=== PATIENT | female | born 1950 | race Caucasian/White ===

== ENCOUNTER 2023-04-27 19:49 | Emergency (ER) | payer MEDICARE, SELFPAY ==
[2023-04-27 19:51] VITALS: BP 110/64
--- NOTE | 2023-04-27 20:47 | ED.GENMED ---
History of Present Illness
<Casandra Rioz PA-C - Last Filed: 04/28/23 17:27>
General
Chief Complaint: Extremity Pain (non-traumatic)
Source: patient
Exam Limitations: none
Time Seen by Provider: 04/27/23 19:58
Nursing documentation reviewed up to this point in time: agreed with
Travel History
Have you had any contact with someone who has COVID-19?: No
Do you have any symptoms of coronavirus? Fever > 100 degrees, chills, cough, shortness of breath, sore throat, loss of taste or smell, muscle aches, or headache?: No
History of Present Illness
History of Present Illness:
Patient is a chronically ill 73-year-old female with history of dementia presenting for evaluation of right shoulder/upper back pain. The majority of the history is obtained by patient's son due to patient's dementia.
Earlier this evening�patient was apparently crying in tears due to pain in right shoulder. Patient's son does not know of any recent trauma or injury to the area. He brought her to the emergency department due to intractable pain.
Patient's son who is her caregiver states that she has suffered from right shoulder and upper back pain for the past year. They have seen multiple specialist and had imaging done that showed a torn rotator cuff and arthritis of right shoulder.
Based on patient's age and clinical condition�there is no plan to intervene at this time. Patients son states that pain is present every day and typically worse at the end of the day. They have tried Tylenol, NSAIDs, cortisone injections with no
improvement.
Patient does have a PEG tube and receives medications through PEG tube.
Past History
<Casandra Rizo PA-C - Last Filed: 04/28/23 17:27>
Past History
ED Past Medical History: Cancer and Hypothyroidism
ED Past Surgical History: Appendectomy and Other (peg, esophageal)
Social History
Tobacco: Former smoker
Alcohol: None
Drug: None
Personal: Single
Living: with family
Phy Exam
<Casandra Rizo PA-C - Last Filed: 04/28/23 17:27>
Physical Exam
Physical Exam:
General: Chronically ill, very frail appearing
Vitals: Vital signs stable, afebrile
HEENT: Atraumatic, normocephalic; protecting airway
Neck: appears supple
CV: No evidence of cyanosis
Resp: No evidence of respiratory distress
Abd: Non-distended
Extremities: No pain to palpation of right shoulder, no significant redness, warmth, swelling of right shoulder, tenderness to palpation over the right scapula, significant pain with shoulder abduction; no obvious deformity or bony tenderness
overlying right humerus or right shoulder, right upper extremity neurovascularly intact
Neuro: alert
Psych: Normal affect
Skin: Intact, no rashes
Course
<Casandra Rizo PA-C - Last Filed: 04/28/23 17:27>
Orders/Labs/Results
Orders:
Orders
04/27/23 20:46
Shoulder, Right 2 Views [CR Shoulder - Right Min 2 View] Urgent
Comment:
Reason For Exam: pain
04/27/23 21:03
Oxycodone [Roxicodone Oral Solution] 5 mg PO NOW STA
04/27/23 22:53
Sling Right-Treatment ONCE
Vital Signs
Initial and Last Documented VS:
Initial Vital Signs
Temp Pulse Resp BP Pulse Ox
97.5 F 72 18 110/64 98
04/27/23 19:51 04/27/23 19:51 04/27/23 19:51 04/27/23 19:51 04/27/23 19:51
Last Documented Vital Signs
Temp Pulse Resp BP Pulse Ox
97.5 F 72 18 110/64 98
04/27/23 19:51 04/27/23 19:51 04/27/23 19:51 04/27/23 19:51 04/27/23 19:51
<Fredy Borden DO - Last Filed: 04/27/23 20:52>
Orders/Labs/Results
Orders:
Orders
04/27/23 20:46
Shoulder, Right 2 Views [CR Shoulder - Right Min 2 View] Urgent
Comment:
Reason For Exam: pain
04/27/23 21:03
Oxycodone [Roxicodone Oral Solution] 5 mg PO NOW STA
04/27/23 22:53
Sling Right-Treatment ONCE
Vital Signs
Initial and Last Documented VS:
Initial Vital Signs
Temp Pulse Resp BP Pulse Ox
97.5 F 72 18 110/64 98
04/27/23 19:51 04/27/23 19:51 04/27/23 19:51 04/27/23 19:51 04/27/23 19:51
Last Documented Vital Signs
Temp Pulse Resp BP Pulse Ox
97.5 F 72 18 110/64 98
04/27/23 19:51 04/27/23 19:51 04/27/23 19:51 04/27/23 19:51 04/27/23 19:51
<Casandra Rizo PA-C - Last Filed: 04/28/23 17:27>
MDM/Problems Addressed
Differential Diagnosis Includes:
Rotator cuff injury, tendinitis, arthritis, fracture, sprain, contusion
MDM/Problems Addressed:
Patient is a 73 year old female with dementia presenting with son for evaluation of intractable pain of right shoulder in setting of known rotator cuff tear and osteoarthritis. No known trauma. No plan for surgical intervention due to patients
current health condition. Patient is very frail, chronically ill. She does have feeding tube. She has some tenderness to right scapula but no obvious deformity or swelling. Given dementia history and degree of pain - will check xray. Will try to get
patient more comfortable.
Xray shows osteoarthritis of glenohumeral joint without evidence of acute fracture of dislocation. Patient appears more comfortable with morphine. She has otherwise remained stable. Patients son feels comfortable with discharge. Will place patient
in shoulder sling and provide a prescription for a few doses of liquid morphine for intractable pain. Will discharge with return precaution, pain management follow-up.
Chronic conditions affecting care:
Dementia, arthritis
Acute Exacerbation and/or Progression of Chronic Illness:
Right shoulder pain
<Casandra Rizo PA-C - Last Filed: 04/28/23 17:27>
*Radiology
Radiology exam reviewed: preliminary read by ED provider and radiology read reviewed
*Pulse Oximetry
Patient hypoxic: no
*EKG
Interpreted by ED Provider?: NA
*Library Science Professor Interpretation
Rate: Library Science Professor- N/A
*Critical Care Note
Total Time (30-74mins, 75-104mins- exclusive of procedures): Not Applicable
ED Attending Note
<Casandra Rizo PA-C - Last Filed: 04/28/23 17:27>
-
Portions of this chart may have been created with voice recognition software.� Occasional wrong word or��sound alike� substitutions may have occurred due to the inherent limitations of voice recognition software.
<Fredy Borden DO - Last Filed: 04/27/23 20:52>
ED Attending Note
Patient seen and examined by attending physician: Yes
I performed the substantive portion of visit, reviewed & personally made and approve the management plan that is documented in note by myself or MITCH.: Yes
ED Attending Note:
Seen with ANA LILIA examined independently 73-year-old female dementia protein calorie malnutrition recurrent right shoulder pain is seen Dr. Meza had a steroid injection without much relief culture rotator cuff injury tear not a candidate for surgery
Here she is chronically ill-appearing but nontoxic mild pain with range of motion, skin is not particularly warm around her shoulder will check screening x-ray rule out any occult trauma try to get her comfortable reviewed with son
Discharge Plan
Departure
Patient Disposition: Home (Routine Discharge)
Date of Disposition: 04/27/23
Time of Disposition: 22:53
Patient with high blood pressure during this ER visit?: No
Condition: Good
Covid-19: Not Applicable
Discharge Problem:
Pain in right shoulder, Osteoarthritis of right shoulder
Instructions: Osteoarthritis (DC), Shoulder Pain (DC)
Prescriptions:
New
oxycodone 5 mg/5 mL solution
5 mg feeding tube Q6H PRN (Reason: Pain) Qty: 30 0RF
Referrals:
Ramez Garber MD [Non-Admitting Privileges] -
Joe Garber MD [Active] -
UNKNOWN - PT DOES,NOT KNOW [Family Provider] -
Activity Restrictions/Additional Instructions:
- Return to the emergency department with any intractable pain, numbness/ tingling in extremities, severe back pain, chest pain, shortness of breath, worsening in current symptoms, or any other concerns
-You can keep arm in a sling as needed for comfort.
-For pain control�I would recommend Tylenol as needed for mild pain. I have sent a prescription for oxycodone solution to use as needed for severe pain. You can place 5 mL through the feeding tube every 6 hours as needed. You should use this
medication cautiously as it will cause drowsiness and increase her risk of falls. Do not let her use this medication and leave her unattended.
-You should follow-up with primary care for further evaluation/management.
-For chronic pain control�you should follow-up with pain management as listed above.
Interventions
Interventions:
*Risk Screen - Suicide Last Done: 04/27/23 19:51
*General Assessment Last Done: 04/27/23 19:51
*Neglect/Abuse Screening Last Done: 04/27/23 20:16
*ED COVID-19 Vaccine History Last Done: 04/27/23 19:51
*Nursing Disposition Last Done: 04/27/23 23:18
ED-Skin Assessment Last Done: 04/27/23 20:18
ED-Peripheral Vascular Assessment Last Done: 04/27/23 20:18
ED-Musculoskeletal Assessment Last Done: 04/27/23 20:18
Discharge Date and Time
Discharge Date/Time: 04/27/23 23:18
[2023-04-27] MEDS: ROXICODONE ORAL SOLUTION 5 MG PO (21:17)
== END 2023-04-27 23:18 | disposition home or self-care (01) ==
LOC: EMR 19:49
PROVIDERS: EMERGENCY PHYSICIAN Emergency Medicine
DX: M25.511 Pain in right shoulder (principal); M19.011 Primary osteoarthritis, right shoulder; F03.90 Unspecified dementia, unspecified severity, without behavioral disturbance, psychotic disturbance, mood disturbance, and anxiety; E03.9 Hypothyroidism, unspecified; Z87.891 Personal history of nicotine dependence
CPT/HCPCS: 99283; 73030

== ENCOUNTER 2023-05-28 17:14 | Emergency (ER) | payer MEDICARE, SELFPAY ==
[2023-05-28 17:17] VITALS: BP 119/82
[2023-05-28 17:19] VITALS: BMI 17.8
--- NOTE | 2023-05-28 19:38 | ED.GENMED ---
History of Present Illness
General
Chief Complaint: Catheter/Tube Problem
Source: family (Son)
Exam Limitations: none
Time Seen by Provider: 05/28/23 18:58
Travel History
Have you had any contact with someone who has COVID-19?: No
Do you have any symptoms of coronavirus? Fever > 100 degrees, chills, cough, shortness of breath, sore throat, loss of taste or smell, muscle aches, or headache?: No
History of Present Illness
History of Present Illness:
This is a 73 year old female that is brought in by son with c/o leaking G-tube. Son states that he noticed yesterday that there was a small leak in the tube. States that this has continued to get worse and is not leaking. Denies any fever, chills,
chest pain, SOB, abd pain, nausea, vomiting, diarrhea,, headache, dizziness.
Past History
Past History
ED Past Medical History: Cancer (Throat and esophagus), Hypothyroidism and Other ([place])
ED Past Surgical History: Appendectomy and Other (peg, esophageal. back surgery)
Social History
Tobacco: Former smoker
Alcohol: None
Drug: None
Personal:
Living: with family
Review of Systems
Review of Systems
All Other Systems: ROS reviewed and negative except as documented in HPI and ROS
Constitutional: Reports no symptoms; Denies fever or chills
EENT: Reports no symptoms
Respiratory: Reports no symptoms
Cardiac: Reports no symptoms
ABD/GI: Reports abdominal pain and other (G-tube leaking); Denies nausea, vomiting or diarrhea
: Reports no symptoms
Musculoskeletal: Reports no symptoms
Skin: Reports no symptoms
Neurological: Reports no symptoms; Denies dizzy or headache
Psychiatric: Reports no symptoms
Phy Exam
General Physical Exam
General Presentation: no apparent distress
General age: appears stated age
General Skin: warm and dry
General Habitus: elderly
General Mental: alert
General Hydration: appears well hydrated
ENT Exam
ENT Exam: TM's normal, neck supple and other (Esophageal and Pharynx surgery, Uvula abscent)
Eye Exam
Eye Exam: EOMI
Cardiovascular Exam
Cardiovascular Exam: regular rate/rhythm and normal peripheral pulses
Pulmonary Exam
Pulmonary Exam: lungs clear, no respiratory distress, no rales, chest non tender, no crackles, no rhonchi, no wheezing and no cough
Gastrointestinal Exam
Gastrointestinal Exam: normal bowel sounds, non tender, soft, no organomegaly, no pulsatile mass and non distended
External Findings: gastrostomy tube (Removed and changed with same Size 16 G-tube without difficult)
Musculoskeletal Exam
Musculoskeletal Exam: full ROM and no edema
Skin Exam
Skin Exam: normal color, warm/dry, no rash and no petechia
Psychiatric Exam
Psychiatric Exam: normal mood/affect
Course
Orders/Labs/Results
Orders:
Orders
05/28/23 19:27
Lidocaine 2% [Lidocaine Uro-Jet 2%] 1 syringe .ROUTE .[facility]
05/28/23 19:37
Tube Check [CR Cont Inj Eval Tube(by Rad)] Urgent
Comment:
Reason For Exam: G-tube changed,
Vital Signs
Initial and Last Documented VS:
Initial Vital Signs
Temp Pulse Resp BP Pulse Ox
98.4 F 61 20 119/82 98
05/28/23 17:17 05/28/23 17:17 05/28/23 17:17 05/28/23 17:17 05/28/23 17:17
Last Documented Vital Signs
Temp Pulse Resp BP Pulse Ox
98.4 F 61 20 119/82 98
05/28/23 17:17 05/28/23 17:17 05/28/23 17:17 05/28/23 17:17 05/28/23 17:17
MDM/Problems Addressed
Differential Diagnosis Includes:
G-tube placement,
MDM/Problems Addressed:
This is a 73 year old female that is brought in by son with G-tube leaking.
G-tube changed without Difficulty. Will check placement with x-ray. If proper placement will discharge home.
Chronic conditions affecting care:
NA
Acute Exacerbation and/or Progression of Chronic Illness:
NA
*Radiology
Radiology exam reviewed: radiology read reviewed (Tube placement-The tip of the feeding tube is in the gastric antrum with no evidence of leak or gastric outlet obstruction. )
*Pulse Oximetry
Patient hypoxic: no
*EKG
Interpreted by ED Provider?: NA
Rate: EKG- N/A
*Combo Welder Interpretation
Rate: Combo Welder- N/A
*Critical Care Note
Total Time (30-74mins, 75-104mins- exclusive of procedures): Not Applicable
ED Attending Note
-
Portions of this chart may have been created with voice recognition software.� Occasional wrong word or��sound alike� substitutions may have occurred due to the inherent limitations of voice recognition software.
Discharge Plan
Departure
Patient Disposition: Home (Routine Discharge)
Date of Disposition: 05/28/23
Time of Disposition: 20:44
Patient with high blood pressure during this ER visit?: No
Condition: Good
Covid-19: Not Applicable
Discharge Problem:
G-tube replacement
Instructions: How to Care for Your Gastrostomy Tube
Prescriptions:
No Action
oxycodone 5 mg/5 mL solution
5 mg feeding tube Q6H PRN (Reason: Pain) Qty: 30 0RF
Referrals:
Kit Garcia PA-C [Family Provider] - Call in 1-3 days for appt
Activity Restrictions/Additional Instructions:
As discussed, you G-tube has been replaced and is properly positioned in the stomach. Please follow up with the GI specialist as needed. IF YOU HAVE ANY OTHER CONCERNS PLEASE RETURN TO THE EMERGENCY ROOM.
Interventions
Interventions:
*Risk Screen - Suicide Last Done: 05/28/23 17:19
*General Assessment Last Done: 05/28/23 17:19
ED- Fall Risk Assessment Last Done: 05/28/23 17:19
*ED COVID-19 Vaccine History Last Done: 05/28/23 17:19
Discharge Date and Time
Print Language: CROATIAN
== END 2023-05-28 20:56 | disposition home or self-care (01) ==
LOC: EMR 17:14
PROVIDERS: EMERGENCY PHYSICIAN Student in an Organized Health Care Education/Training Program; FAMILY PHYSICIAN Physician Assistant
DX: Z43.1 Encounter for attention to gastrostomy (principal); E03.9 Hypothyroidism, unspecified; F03.90 Unspecified dementia, unspecified severity, without behavioral disturbance, psychotic disturbance, mood disturbance, and anxiety; Z87.891 Personal history of nicotine dependence
CPT/HCPCS: 99283; 43762; 49465

== ENCOUNTER 2023-06-05 18:34 | Emergency (ER) | payer MEDICARE, SELFPAY ==
[2023-06-05 18:45] VITALS: BP 103/62
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
--- NOTE | 2023-06-06 10:59 | CM ---
Addendum entered by Alysa Gruber RN 06/06/23 12:25:
CM spoke with patient's son. He declined home care at this time. CM provided patient's son with contacts for admissions to [facility] and [facility]. CM will refer patient to [facility] for evaluation if needed.
Original Note:
CM reviewed medical records. CM spoke with patient's son who stated that patient's dementia symptoms are becoming more difficult to manage including aggressive behavior and wandering. CM was agreeable to [facility] care through [facility] and referral to [facility]
for evaluation and referral to services.
CM updated [facility] documentation liaison with new referral. CM will send referral to [facility].
== END 2023-06-05 20:36 | disposition home or self-care (01) ==
LOC: EMR 18:34
PROVIDERS: EMERGENCY PHYSICIAN Emergency Medicine; FAMILY PHYSICIAN Physician Assistant
DX: M19.011 Primary osteoarthritis, right shoulder (principal); W19.XXXA Unspecified fall, initial encounter; Z87.891 Personal history of nicotine dependence; F03.90 Unspecified dementia, unspecified severity, without behavioral disturbance, psychotic disturbance, mood disturbance, and anxiety; Z93.1 Gastrostomy status
CPT/HCPCS: 99283; 73030

== ENCOUNTER 2023-09-04 17:47 | Emergency (ER) | payer MEDICARE, SELFPAY ==
[2023-09-04 17:55] VITALS: BP 111/66; BMI 15.5
--- NOTE | 2023-09-04 20:12 | ED.GENMED ---
History of Present Illness
General
Chief Complaint: Catheter/Tube Problem
Source: patient and family
Exam Limitations: none
Time Seen by Provider: 09/04/23 18:35
Nursing documentation reviewed up to this point in time: agreed with
History of Present Illness
History of Present Illness:
Patient to ED for G tube replacement. Her tube dislodged at home today. Brought to ED by son for eval. No other complaints
Past History
Past History
ED Past Medical History: Cancer (Throat and esophagus), Hypothyroidism and Other ([place])
ED Past Surgical History: Appendectomy and Other (peg, esophageal. back surgery)
Social History
Tobacco: Former smoker
Alcohol: None
Drug: None
Personal:
Living: with family
Review of Systems
Review of Systems
Allergies reviewed?: Yes
All Other Systems: ROS reviewed and negative except as documented in HPI and ROS
Constitutional: Reports no symptoms
EENT: Reports no symptoms
Respiratory: Reports no symptoms
Cardiac: Reports no symptoms
ABD/GI: Reports other (gtube dislodged)
: Reports no symptoms
Skin: Reports no symptoms
Neurological: Reports no symptoms
Psychiatric: Reports no symptoms
Phy Exam
General Physical Exam
General Presentation: well appearing and no apparent distress
General age: appears stated age
General Skin: warm and dry
General Habitus: normal
General Mental: alert
Pulmonary Exam
Pulmonary Exam: no respiratory distress
Gastrointestinal Exam
Gastrointestinal Exam: normal bowel sounds, non tender, soft, no organomegaly and non distended
Musculoskeletal Exam
Musculoskeletal Exam: full ROM and neuro vasc intact
Skin Exam
Skin Exam: normal color, warm/dry and no rash
Psychiatric Exam
Psychiatric Exam: normal mood/affect
Course
Orders/Labs/Results
Orders:
Orders
09/04/23 18:44
Tube Check [CR Cont Inj Eval Tube(by Rad)] Urgent
Comment:
Reason For Exam: g tube replacement
Vital Signs
Initial and Last Documented VS:
Initial Vital Signs
Temp Pulse Resp BP Pulse Ox
97.4 F 70 16 111/66 99
09/04/23 17:55 09/04/23 17:55 09/04/23 17:55 09/04/23 17:55 09/04/23 17:55
Last Documented Vital Signs
Temp Pulse Resp BP Pulse Ox
97.4 F 70 16 111/66 99
09/04/23 17:55 09/04/23 17:55 09/04/23 17:55 09/04/23 17:55 09/04/23 17:55
*Critical Care Note
Total Time (30-74mins, 75-104mins- exclusive of procedures): Not Applicable
Update Note
Update Note:
16F gtube with 15cc balloon placed without difficulty. Confirmed by xray. She is discharged home and will follow up with her PCP as needed.
ED Attending Note
-
Portions of this chart may have been created with voice recognition software.� Occasional wrong word or��sound alike� substitutions may have occurred due to the inherent limitations of voice recognition software.
Discharge Plan
Departure
Patient Disposition: Home (Routine Discharge)
Date of Disposition: 09/04/23
Time of Disposition: 20:00
Patient with high blood pressure during this ER visit?: No
Condition: Good
Covid-19: Not Applicable
Discharge Problem:
Encounter for gastrojejunal (GJ) tube placement
Instructions: How to Care for Your Gastrostomy Tube
Prescriptions:
No Action
oxycodone 5 mg/5 mL solution
5 mg feeding tube Q6H PRN (Reason: Pain) Qty: 30 0RF
Referrals:
Kit Garcia PA-C [Family Provider] - Tomorrow
Interventions
Interventions:
*Risk Screen - Suicide Last Done: 09/04/23 17:55
*Neglect/Abuse Screening Last Done: 09/04/23 17:55
ED- Fall Risk Assessment Last Done: 09/04/23 17:55
*Nursing Disposition Last Done: 09/04/23 20:09
TA-Janjez-Kzapatgojh Assessment Last Done: 09/04/23 19:29
ED-Female Genitourinary Assessment Last Done: 09/04/23 19:29
Discharge Date and Time
Print Language: MOROCCAN
== END 2023-09-04 20:12 | disposition home or self-care (01) ==
LOC: EMR 17:47
PROVIDERS: EMERGENCY PHYSICIAN Emergency Medicine; FAMILY PHYSICIAN Physician Assistant
DX: Z43.1 Encounter for attention to gastrostomy (principal); E03.9 Hypothyroidism, unspecified; Z87.891 Personal history of nicotine dependence; Z90.49 Acquired absence of other specified parts of digestive tract
CPT/HCPCS: 99283; 43762; 49465

== ENCOUNTER 2023-10-27 19:31 | Emergency (ER) | payer MEDICARE, SELFPAY ==
[2023-10-27 19:32] VITALS: BMI 16.7
[2023-10-27 19:40] VITALS: BP 121/76
[2023-10-27 20:41] VITALS: BP 118/97
--- NOTE | 2023-10-27 21:15 | ED.GENMED ---
History of Present Illness
General
Chief Complaint: Catheter/Tube Problem
Source: patient and family (son)
Exam Limitations: dementia (Slight)
Time Seen by Provider: 10/27/23 20:13
History of Present Illness
History of Present Illness:
This is a 73 year old female that is brought in by her son with c/o feeding tube falling out. Son states that the tube has been in for about 2 months. States that she has had a feeding tube for years. Denies any fever, chills, chest pain, SOB, abd
pain, nausea, vomiting, diarrhea, headache, dizziness.
Past History
Past History
ED Past Medical History: Cancer (Throat and esophagus), Hypothyroidism and Other (Dementia slight)
ED Past Surgical History: Appendectomy and Other (peg, esophageal. back surgery)
Social History
Tobacco: Former smoker
Alcohol: None
Drug: None
Personal:
Living: with family
Review of Systems
Review of Systems
Other source history: family
All Other Systems: ROS reviewed and negative except as documented in HPI and ROS
Constitutional: Reports no symptoms; Denies fever or chills
EENT: Reports no symptoms
Respiratory: Reports no symptoms; Denies cough or trouble breathing
Cardiac: Reports no symptoms; Denies chest pain
ABD/GI: Denies abdominal pain, vomiting or diarrhea
: Reports no symptoms
Musculoskeletal: Reports no symptoms
Skin: Reports no symptoms
Neurological: Reports no symptoms; Denies dizzy or headache
Psychiatric: Reports no symptoms
Phy Exam
General Physical Exam
General Presentation: no apparent distress
General age: appears stated age
General Skin: warm and dry
General Habitus: elderly
General Mental: usual mental status
General Hydration: appears well hydrated
ENT Exam
ENT Exam: TM's normal, neck supple and other (Prior surgery on Throat and esophagus)
Eye Exam
Eye Exam: EOMI
Cardiovascular Exam
Cardiovascular Exam: regular rate/rhythm, no edema and normal peripheral pulses
Pulmonary Exam
Pulmonary Exam: lungs clear, no respiratory distress, no rales, chest non tender, no crackles, no rhonchi, no wheezing and no cough
Gastrointestinal Exam
Gastrointestinal Exam: normal bowel sounds, non tender, soft, no organomegaly, no pulsatile mass and non distended
External Findings: other (PEG tube replaced with 14french with 6ml balloon. )
Musculoskeletal Exam
Musculoskeletal Exam: full ROM and no edema
Skin Exam
Skin Exam: normal color, warm/dry, no rash and no petechia
Psychiatric Exam
Psychiatric Exam: normal mood/affect
Course
Orders/Labs/Results
Orders:
Orders
10/27/23 20:26
Lidocaine 2% [Lidocaine Uro-Jet 2%] 1 syringe .ROUTE .[facility]
10/27/23 20:54
Tube Check [CR Cont Inj Eval Tube(by Rad)] Urgent
Comment:
Reason For Exam: Replaced G-tube
Vital Signs
Initial and Last Documented VS:
Initial Vital Signs
Temp Pulse Resp BP Pulse Ox
98.1 F 64 13 121/76 98
10/27/23 19:40 10/27/23 19:40 10/27/23 19:40 10/27/23 19:40 10/27/23 19:40
Last Documented Vital Signs
Temp Pulse Resp BP Pulse Ox
98.1 F 55 18 118/97 100
10/27/23 19:40 10/27/23 20:41 10/27/23 20:41 10/27/23 20:41 10/27/23 20:41
MDM/Problems Addressed
Differential Diagnosis Includes:
PEG tube replacement
MDM/Problems Addressed:
This is 73 year old female that is brought in by her son with c/o PEG tube falling out. States that this one has been in for about 2 months and tonight it just fell out.
PEG tube was replaced without difficulty. Will get X-ray and discharge home
Feeding tube is in place. Will discharge home.
Chronic conditions affecting care:
Chronic PEG tube
Acute Exacerbation and/or Progression of Chronic Illness:
Chronic PEG tube
*Radiology
Radiology exam reviewed: radiology read reviewed (The tip of the feeding tube is in the gastric fundus. There is no evidence of leak. The stomach empties normally into the duodenum)
*Pulse Oximetry
Patient hypoxic: no
*EKG
Interpreted by ED Provider?: NA
Rate: EKG- N/A
*Jewelsmith Interpretation
Rate: Jewelsmith- N/A
*Critical Care Note
Total Time (30-74mins, 75-104mins- exclusive of procedures): Not Applicable
ED Attending Note
-
Portions of this chart may have been created with voice recognition software.� Occasional wrong word or��sound alike� substitutions may have occurred due to the inherent limitations of voice recognition software.
Discharge Plan
Departure
Patient Disposition: Home (Routine Discharge)
Date of Disposition: 10/27/23
Time of Disposition: 22:48
Patient with high blood pressure during this ER visit?: No
Condition: Good
Covid-19: Not Applicable
Discharge Problem:
PEG TUBE replacedPLACEMENT
Instructions: How to Care for Your Gastrostomy Tube
Prescriptions:
No Action
oxycodone 5 mg/5 mL solution
5 mg feeding tube Q6H PRN (Reason: Pain) Qty: 30 0RF
Referrals:
Kit Garcia PA-C [Family Provider] - Call in 1-3 days for appt
Activity Restrictions/Additional Instructions:
As discussed, the Feeding tube is place without difficulty and is in proper position. Please follow up with the family doctor as needed. IF YOU HAVE ANY OTHER CONCERNS PLEASE RETURN TO THE EMERGENCY ROOM
Interventions
Interventions:
*Risk Screen - Suicide Last Done: 10/27/23 19:40
*General Assessment Last Done: 10/27/23 19:40
*Neglect/Abuse Screening Last Done: 10/27/23 19:40
ED- Fall Risk Assessment Last Done: 10/27/23 20:44
*ED COVID-19 Vaccine History Last Done: 10/27/23 20:44
HG-Ufyimz-Ipwrdvehtu Assessment Last Done: 10/27/23 20:42
ED-Female Genitourinary Assessment Last Done: 10/27/23 20:43
Discharge Date and Time
Print Language: LEBANESE
[2023-10-27 22:49] VITALS: BP 116/80
== END 2023-10-27 22:54 | disposition home or self-care (01) ==
LOC: EMR 19:31
PROVIDERS: EMERGENCY PHYSICIAN Emergency Medicine; FAMILY PHYSICIAN Physician Assistant
DX: Z43.1 Encounter for attention to gastrostomy (principal); Z87.891 Personal history of nicotine dependence
CPT/HCPCS: 99283; 43762; 49465